=== PATIENT | female | born 1975 | race Caucasian/White ===

== ENCOUNTER 2024-03-09 09:14 | Outpatient (CLI) | payer MEDICAID, SELFPAY ==
--- NOTE | 2024-03-09 09:20 | XR_ITS ---
PROCEDURE INFORMATION: Exam: XR Right Forearm Exam date and time: 03/09/2024 9:22 AM Age: 48 years old Clinical indication: Pain; Lower or forearm; Right; Additional info: Right forearm pain TECHNIQUE: Imaging protocol: Radiologic exam of the right forearm. Views: 2 views. COMPARISON: CR XR FOREARM RT 2V 03/09/2024 9:22 AM FINDINGS: Bones/joints: There is no evidence of acute fracture.There is no evidence of malalignment or dislocation. Soft tissues: Normal. IMPRESSION: There is no evidence of acute fracture.There is no evidence of malalignment or dislocation.
--- NOTE | 2024-03-09 09:20 | XR_ITS ---
PROCEDURE INFORMATION: Exam: XR Right Hand Exam date and time: 03/09/2024 9:22 AM Age: 48 years old Clinical indication: Pain; Hand; Right; Additional info: Right hand pain TECHNIQUE: Imaging protocol: Radiologic exam of the right hand. Views: 3 or more views. COMPARISON: CR XR HAND RT MIN 3V 03/09/2024 9:22 AM FINDINGS: Bones/joints: There is no evidence of acute fracture.There is no evidence of malalignment or dislocation. Degenerative changes in the thumb carpometacarpal joint and in the radiocarpal joint Soft tissues: Normal. IMPRESSION: There is no evidence of acute fracture.There is no evidence of malalignment or dislocation.
--- NOTE | 2024-03-09 09:20 | XR_ITS ---
PROCEDURE INFORMATION: Exam: XR Right Wrist Exam date and time: 03/09/2024 9:22 AM Age: 48 years old Clinical indication: Pain; Wrist; Right; Additional info: Right wrist pain TECHNIQUE: Imaging protocol: Radiologic exam of the right wrist. Views: 3 or more views. Total images: 3 COMPARISON: CR XR WRIST RT MIN 3V 03/09/2024 9:22 AM FINDINGS: Bones/joints: No evidence of acute fracture or dislocation. Soft tissues: Soft tissues are within normal limits. IMPRESSION: No evidence of acute fracture or dislocation.
== END 2024-03-09 23:59 | disposition home or self-care (01) ==
LOC: RAD 09:15
PROVIDERS: Visit Provider Physician Assistant Surgical
DX: M25.531 Pain in right wrist (principal); M79.631 Pain in right forearm; M79.641 Pain in right hand
CPT/HCPCS: 73090; 73110; 73130